=== PATIENT | male | born 1955 | race Two or more races ===

== ENCOUNTER 2016-06-20 17:04 | Emergency (ER) | payer MEDICAID ==
[~2016-06-20] VITALS: Ht 177.8 cm; Wt 107.0 kg
[2016-06-20 23:09] LABS: Urine Bilirubin Negative (Negative); Urine Blood Negative /uL (Negative); Urine Color Yellow (Yellow); Urine Glucose Normal (Normal); Urine Ketone TRACE (Negative); Urine Nitrite Negative (Negative); Urine RBC 2 /hpf (0 - 3); Urine Sperm PRESENT /hpf (None Seen); Urine Squamous Epithelial Cell FEW /hpf (<5); Urine Urobilinogen Normal (Negative); Urine pH 5.5 (5.0-8.0)
[2016-06-20 23:22] VITALS: BP 140/88
== END 2016-06-21 00:39 | disposition home or self-care (01) ==
LOC: ER 17:09
DX: R07.89 Other chest pain (principal); Z85.46 Personal history of malignant neoplasm of prostate; W11.XXXA Fall on and from ladder, initial encounter; Y93.89 Activity, other specified; Y99.8 Other external cause status; Y92.89 Other specified places as the place of occurrence of the external cause
CPT/HCPCS: 70450; 71020; 72125; 81001; 93005